=== PATIENT | male | born 1965 | race Caucasian/White ===

== ENCOUNTER 2017-12-01 09:10 | Emergency (ER) | payer SELFPAY ==
[2017-12-01 09:30] VITALS: TEMP 96.5
--- NOTE | 2017-12-01 09:33 | ED.PDOC ---
History of Present Illness - General Chief Complaint: Neck Injury/Pain Stated Complaint: neck pain Time Seen by Provider: 12/01/17 09:32 Source: patient Exam Limitations: no limitations - History of Present Illness Initial Comments: Teofilo Deluca 52 y/o male stated while he was at friends house stood up suddenly to answer his phone but head hitting a metal bucket on the ceiling then had sharp pain on his neck radiating to back of head .No LOC,remembers incident,no blurry vision.Stated had neck surgery int he past work related.No weakness,no numbness. Timing/Duration: 4-6 hours Severity: moderate Improving Factors: nothing Worsening Factors: movement Associated Symptoms: other - see hpi Allergies/Adverse Reactions: Allergies NO KNOWN ALLERGY Allergy (Verified 12/01/17 09:29) Home Medications: Ambulatory Orders Baclofen 20 mg PO BID #14 tab 12/01/17 Review of Systems - Review of Systems Constitutional: States: no symptoms reported EENTM: States: no symptoms reported Respiratory: States: no symptoms reported Cardiology: States: no symptoms reported Musculoskeletal: States: see HPI All other Systems: Reviewed and Negative, No Change from Baseline Past Medical History (General) - Patient Medical History Hx Seizures: No Hx Stroke: No Hx Hypertension: No Surgical History: tonsillectomy, other - c- spine - Vaccination History Hx Influenza Vaccination: No Hx Pneumococcal Vaccination: No - Social History Hx Tobacco Use: Yes Hx Alcohol Use: No - Activities of Daily Living Grooming Ability: Independent Eating (Feeding) Ability: Independent Toileting Ability: Independent Family Medical History - Family History Mother Family History: Unknown Hx Family Hypertension: Yes - multiple family memebers Hx Cardiac Disease: Yes - multiple family members Hx Family Diabetes: Yes - multiple family members Hx Family Cancer: Yes - throat dad Physical Exam - Physical Exam General Appearance: Alert, Comfortable, No apparent distress, Other - speech fluent Eye Exam: bilateral normal Ears, Nose, Throat: hearing grossly normal, normal ENT inspection Neck: normal inspection, limited range of motion - painful, other - muscle spasm both sides Respiratory: chest non-tender, lungs clear, normal breath sounds Cardiovascular/Chest: normal peripheral pulses, regular rate, rhythm, no murmur Peripheral Pulses: radial,right: 2+, radial,left: 2+ Gastrointestinal/Abdominal: normal bowel sounds, non tender, soft, no organomegaly Extremity: normal range of motion, non-tender, no pedal edema, no calf tenderness Neurologic: no motor/sensory deficits, alert, oriented x 3 Skin Exam: normal color, warm/dry Lymphatic: no adenopathy Progress - Progress Progress: 12/01/17 09:47 Vital Signs - 8 hr 12/01/17 09:20 Temperature 96.5 F L Pulse Rate [ 71 pulse ox] Respiratory 20 Rate Blood Pressure 157/100 [Left Arm] O2 Sat by Pulse 97 Oximetry - EKG/XRAY/CT XRAY: c-spine - degenerative changes Departure - Departure Clinical Impression: Head contusion Qualifiers: Encounter type: initial encounter Contusion of head detail: scalp Qualified Code(s): S00.03XA - Contusion of scalp, initial encounter Strain of anterolateral cervical muscle Qualifiers: Encounter type: initial encounter Qualified Code(s): S16.1XXA - Strain of muscle, fascia and tendon at neck level, initial encounter Time of Disposition: 10:51 Disposition: Discharge to Home or Self Care Condition: Good Departure Forms: ED Discharge - Pt. Copy, Patient Portal Self Enrollment Instructions: DI for Neck Pain, DI for Cervical Muscle Strain Prescriptions: Baclofen 20 mg PO BID #14 tab Home Medications: Ambulatory Orders Baclofen 20 mg PO BID #14 tab 12/01/17 Additional Instructions: follow up with primary Md 03 Dec 2017 as needed;may take Aleve (OTC) 1-2 tabs am /pm for pain
[2017-12-01] MEDS ORDERED: HYDROcodone 10MG/APAP 325MG 1 EA TAB PO ONE (09:49)
[2017-12-01] MEDS ORDERED: ORPHENADRINE CITRATE 30 MG/ML AMP IM ONE (09:49)
[2017-12-01] MEDS ORDERED: KETOROLAC TROMETHAMINE INJ 30 MG/ML VIAL IM ONE (09:49)
--- NOTE | 2017-12-01 10:32 | RAD ---
EXAM DESCRIPTION: Cervical Spine,3 Views CLINICAL HISTORY: 52 years Male, pain COMPARISON: None. FINDINGS: Three views of the cervical spine show postoperative changes related to previous anterior cervical discectomy and fusion at the C5-6 level. No hardware or other surgical complication is identified. There is loss of physiologic cervical lordosis. No vertebral body fracture or subluxation. Disc space narrowing is noted at several levels, slightly worse at C3-4 and C6-7. The facet joints are anatomically aligned. The spinous processes are intact. IMPRESSION: Uncomplicated postoperative changes at C5-6 with moderate degenerative changes elsewhere in the cervical spine including degenerative disc disease. Electronically signed by: Saman Arellano MD 12/01/2017 10:30 AM CDT
[2017-12-01 11:17] VITALS: BP 129/94; O2SAT 99
== END 2017-12-01 11:16 | disposition home or self-care (01) ==
LOC: ER 09:10
DX: S16.1XXA Strain of muscle, fascia and tendon at neck level, initial encounter (principal); Z87.891 Personal history of nicotine dependence; W22.8XXA Striking against or struck by other objects, initial encounter; Y92.9 Unspecified place or not applicable
CPT/HCPCS: 72040; J1885; J2360

== ENCOUNTER 2018-01-23 19:22 | Emergency (ER) | payer SELFPAY ==
[2018-01-23] MEDS ORDERED: CHLORHEXIDINE GLUCONATE 4 % 15 ML UD TOP ONE (19:32)
[2018-01-23 19:50] VITALS: TEMP 98.5; O2SAT 97
[2018-01-23] MEDS ORDERED: HYDROcodone 10MG/APAP 325MG 1 EA TAB PO ONE (19:50)
[2018-01-23] MEDS ORDERED: ceFAZolin SODIUM 1 GM VIAL IM ONE (19:50)
[2018-01-23] MEDS ORDERED: TETANUS,DIPHTHERIA,PERTUSSIS 1 EA SYG IM ONE (20:15)
--- NOTE | 2018-01-23 20:23 | ED.PDOC ---
History of Present Illness - General Chief Complaint: Laceration Stated Complaint: hand laceration Time Seen by Provider: 01/23/18 19:49 Source: patient Exam Limitations: no limitations - History of Present Illness Initial Comments: Teofilo Deluca 53 y/o male came to ER with laceration to left hand after he accidentally bump with left hand noted pain /bleeding after incident. Timing/Duration: just prior to arrival Severity: moderate Location: hands - left Improving Factors: rest Worsening Factors: movement Associated Symptoms: other - pain Allergies/Adverse Reactions: Allergies NO KNOWN ALLERGY Allergy (Verified 12/01/17 09:29) Home Medications: Ambulatory Orders Baclofen 20 mg PO BID #14 tab 12/01/17 Acetamin W/Cod #3 Tab [Tylenol w/CODEINE #3] 1 ea PO TID PRN #10 tab 01/23/18 Cephalexin 1,000 mg PO BID 7 Days #30 cap 01/23/18 Review of Systems - Review of Systems Constitutional: States: no symptoms reported EENTM: States: no symptoms reported Respiratory: States: no symptoms reported Cardiology: States: no symptoms reported Gastrointestinal/Abdominal: States: no symptoms reported Genitourinary: States: no symptoms reported Musculoskeletal: States: no symptoms reported Skin: States: see HPI Neurological: States: no symptoms reported All other Systems: Reviewed and Negative, No Change from Baseline Past Medical History (General) - Patient Medical History Hx Seizures: No Hx Stroke: No Hx Hypertension: No Surgical History: tonsillectomy, other - c-spine - Vaccination History Hx Influenza Vaccination: No Hx Pneumococcal Vaccination: No - Social History Hx Tobacco Use: Yes Hx Alcohol Use: No Family Medical History - Family History Mother Family History: Unknown Hx Family Hypertension: Yes - multiple family memebers Hx Cardiac Disease: Yes - multiple family members Hx Family Diabetes: Yes - multiple family members Hx Family Cancer: Yes - throat dad Father Living Status: Hx Cardiac Disease: Yes Hx Family Cancer: Yes Physical Exam - Physical Exam General Appearance: Alert, Comfortable Eyes, Ears, Nose, Throat Exam: normal ENT inspection Neck: non-tender, supple Cardiovascular/Chest: normal peripheral pulses, regular rate, rhythm, no murmur Respiratory: chest non-tender, lungs clear, normal breath sounds Gastrointestinal/Abdominal: normal bowel sounds, non tender, soft, no organomegaly Extremity: non-tender, normal inspection, no calf tenderness Neurologic: alert, oriented x 3 Skin Exam: warm/dry, normal color Skin Problem Location: upper extremities - left hand laceration 3 cm gaping / bleeding Lymphatic: no adenopathy Progress - Progress Progress: 01/23/18 21:21 Vital Signs - 8 hr 01/23/18 19:37 Temperature 98.5 F Pulse Rate [ 88 left] Respiratory 18 Rate Blood Pressure 124/92 [left] O2 Sat by Pulse 97 Oximetry Procedures - Laceration/Wound Repair Left Hand Wound Length (cm): 3 - left hand gapin/bleeding Wound's Depth, Shape: into muscle Wound Explored: no foreign body removed Irrigated w/ Saline (cc's): 50 Betadine Prep?: No - hibiclens Anesthesia: 1% Lidocaine Volume Anesthetic (cc's): 10 Wound Repaired With: sutures Suture Size/Type: 3:0, prolene Number of Sutures: 6 Layer Closure?: Yes Deep Layer Suture Size/Type: 3:0, vicryl rapide Number Deep Layer Sutures: 3 Sterile Dressing Applied?: Yes Departure - Departure Clinical Impression: Laceration of hand, left, complicated Qualifiers: Encounter type: initial encounter Qualified Code(s): S61.412A - Laceration without foreign body of left hand, initial encounter Time of Disposition: 21:24 Disposition: Discharge to Home or Self Care Condition: Fair Departure Forms: ED Discharge - Pt. Copy, Patient Portal Self Enrollment Instructions: DI for Laceration Repair, DI for Laceration Repair -- Complex Prescriptions: Acetamin W/Cod #3 Tab [Tylenol w/CODEINE #3] 1 ea PO TID PRN #10 tab PRN Reason: Pain Cephalexin 1,000 mg PO BID 7 Days #30 cap Home Medications: Ambulatory Orders Baclofen 20 mg PO BID #14 tab 12/01/17 Acetamin W/Cod #3 Tab [Tylenol w/CODEINE #3] 1 ea PO TID PRN #10 tab 01/23/18 Cephalexin 1,000 mg PO BID 7 Days #30 cap 01/23/18 Additional Instructions: Removal of stitches 03 February 2018 [facility]
[2018-01-23] MEDS ORDERED: NEOMYCIN-BACITRACIN-POLYMYXIN 0.9 GM UD TOP ONE (21:12)
[2018-01-23] MEDS ORDERED: HYDROCOD/APAP 10/325 (ER DISP) # 3 tablets PO ONE (21:27)
[2018-01-23 21:47] VITALS: BP 116/82
== END 2018-01-23 21:45 | disposition home or self-care (01) ==
LOC: ER 19:22
DX: S61.412A Laceration without foreign body of left hand, initial encounter (principal); Z23 Encounter for immunization; Z87.891 Personal history of nicotine dependence; W22.8XXA Striking against or struck by other objects, initial encounter; Y92.9 Unspecified place or not applicable
CPT/HCPCS: 90471; 90715; J0690